=== PATIENT | female | born 1985 | race Caucasian/White ===

== ENCOUNTER 2023-03-24 15:05 | Emergency (ER) | payer MEDICAID ==
[~2023-03-24] VITALS: Ht 167.6 cm; Wt 73.0 kg
[2023-03-24 15:13] VITALS: RESP 16; TEMP 98.1
[2023-03-24] MEDS ORDERED: LIDOcaine 1% w/epiNEPHrine 1:200,000 30ml vial IM ONE (15:15)
[2023-03-24] MEDS ORDERED: LIDOCAINE 1%/EPI 1:100,000 inj. 10 ML multi-dose vial IM ONE (19:25)
[2023-03-24 19:27] VITALS: BP 135/67; PULSE 70; O2SAT 96
== END 2023-03-24 19:28 | disposition home or self-care (01) ==
LOC: ER 15:07
DX: S62.306A Unspecified fracture of fifth metacarpal bone, right hand, initial encounter for closed fracture (principal); Z79.899 Other long term (current) drug therapy; W22.09XA Striking against other stationary object, initial encounter; Y93.89 Activity, other specified; Y92.89 Other specified places as the place of occurrence of the external cause; Y99.8 Other external cause status
CPT/HCPCS: 26605; 73130; 99284

== ENCOUNTER 2023-03-26 11:37 | Emergency (ER) | payer MEDICAID ==
[~2023-03-26] VITALS: Ht 167.6 cm; Wt 75.4 kg
[2023-03-26 11:40] VITALS: BP 143/84; PULSE 104; RESP 16; O2SAT 98
[2023-03-26 13:48] VITALS: TEMP 98
== END 2023-03-26 13:48 | disposition home or self-care (01) ==
LOC: ER 11:37
DX: S62.306D Unspecified fracture of fifth metacarpal bone, right hand, subsequent encounter for fracture with routine healing (principal); X58.XXXD Exposure to other specified factors, subsequent encounter
CPT/HCPCS: 99281; A6449

== ENCOUNTER 2023-07-12 02:19 | Emergency (ER) | payer MEDICAID ==
[~2023-07-12] VITALS: Ht 167.6 cm; Wt 72.7 kg
[2023-07-12] MEDS: diphenhydrAMINE 50 mg/ml inj IM ONE (02:27)
[2023-07-12] MEDS: haloperidol lactate 5mg/ml inj IM ONE (02:28)
[2023-07-12] MEDS: midazolam 1 mg/ML 2ml injection IM ONE (02:28)
[2023-07-12] MEDS: midazolam 1 mg/ML 2ml injection IV ONE (02:45)
[2023-07-12 03:26] LABS: BASOPHILS % (AUTO) 0.2 % (0-1); EOSINOPHILS % (AUTO) 0.1 % (0-6); HEMATOCRIT 38.6 % (35.0-45.0); HEMOGLOBIN 13.1 g/dl (12.0-16.0); LYMPHOCYTES # (AUTO) 1.8 X10'3 (1.1-4.8); MEAN CORPUSCULAR HEMOGLOBIN 32.3 PG (27.0-31.0); MEAN CORPUSCULAR HGB CONC 33.8 g/dL (33.0-36.5); MEAN CORPUSCULAR VOLUME 95.5 FL (78-98); MEAN PLATELET VOLUME 8.6 FL (7.4-10.4); MONOCYTES % (AUTO) 8.3 % (2-12); NEUTROPHILS # (AUTO) 9.8 X10'3 (1.8-7.7); NEUTROPHILS % (AUTO) 77.4 % (42-75); PLATELET COUNT 261 X10'3 (140-440); RED BLOOD COUNT 4.05 X10'6 (4.20-5.60); RED CELL DISTRIBUTION WIDTH 13.4 % (11.5-14.5); WHITE BLOOD COUNT 12.6 X10'3 (4.5-11.0)
[2023-07-12 04:06] LABS: ANION GAP 15 (8-16); BLOOD UREA NITROGEN 13 MG/DL (7-18); CALCIUM 8.5 MG/DL (8.5-10.1); CHLORIDE 103 MMOL/L (99-107); ETHANOL 226 MG/DL (<10); GLUCOSE 119 MG/DL (70-104); POTASSIUM 3.4 MMOL/L (3.5-5.1); SALICYLATE 2.8 MG/DL (4.0-20.0); SODIUM 137 MMOL/L (135-145); TOTAL CARBON DIOXIDE 19.1 MMOL/L (24-32); eCRCL 71 ML/MIN; eGFR 62 ML/MIN
[2023-07-12 04:08] LABS: ACETAMINOPHEN < 2.0 UG/ML (10-30)
[2023-07-12 06:40] LABS: URINE HCG NEGATIVE (NEG)
[2023-07-12 06:42] LABS: BILIRUBIN,URINE NEGATIVE (Neg); CLARITY,URINE CLEAR (Clear); COLOR,URINE YELLOW (Yellow); GLUCOSE, URINE NEGATIVE (Neg); KETONES,URINE NEGATIVE (Neg); LEUKOCYTE ESTERASE ,URINE NEGATIVE (Neg); NITRITES, URINE NEGATIVE (Neg); OCCULT BLOOD,URINE TRACE-INTACT (Neg); PH,URINE 5.5 (4.8-8.0); PROTEIN,URINE NEGATIVE (Neg); UROBILINOGEN,URINE 0.2 E.U/dL (0.2-1.0)
[2023-07-12 06:47] LABS: UA COLLECTION TYPE CLN CATCH MIDSTREAM
[2023-07-12 06:50] LABS: URINE AMPHETAMINE SCREEN NEGATIVE (Neg); URINE BARBITUATE SCREEN NEGATIVE (Neg); URINE BENZODIAZEPINES SCREEN POSITIVE (Neg); URINE CANNABINOID SCREEN POSITIVE (Neg); URINE COCAINE SCREEN NEGATIVE (Neg); URINE METHADONE SCREEN NEGATIVE (Neg); URINE OPIATE SCREEN NEGATIVE (Neg); URINE PHENCYCLIDINE SCREEN NEGATIVE (Neg)
[2023-07-12 06:51] LABS: WBC,URINE NONE SEEN /HPF (0-4)
[2023-07-12 06:52] LABS: BACTERIA,URINE FEW /HPF (Neg); RBC,URINE 0-2 /HPF (0-2); SQUAMOUS EPITHELIAL CELL,UR NONE SEEN /LPF (FEW)
[2023-07-13 10:59] VITALS: BP 130/70; PULSE 70; RESP 18; TEMP 98.4; O2SAT 99
== END 2023-07-13 11:31 | disposition home or self-care (01) ==
LOC: ER 02:19
DX: F10.129 Alcohol abuse with intoxication, unspecified (principal); F23 Brief psychotic disorder
CPT/HCPCS: 36415; 80048; 80178; 80305; 80320; 80329; 81001; 81025; 85025; 96372; 99285; J1200; J1630; J2250

== ENCOUNTER 2023-10-21 03:03 | Emergency (ER) | payer MEDICAID ==
[~2023-10-21] VITALS: Ht 167.6 cm; Wt 75.0 kg
[2023-10-21 03:06] VITALS: BP 116/86; PULSE 89; RESP 18; TEMP 98.3; O2SAT 97
== END 2023-10-21 03:19 ==
LOC: ER 03:04
DX: I10 Essential (primary) hypertension (principal); Z02.89 Encounter for other administrative examinations
CPT/HCPCS: 99283